=== PATIENT | female | born 1995 | race African-American/Black ===

== ENCOUNTER 2023-11-02 08:22 | Inpatient (IN) | payer MEDICAID, OTHER ==
[~2023-11-02] VITALS: Ht 161.3 cm; Wt 64.0 kg
[2023-11-02 09:06] LABS: Urine Bacteria None Seen /hpf (None Seen)
[2023-11-02 09:17] LABS: Urine Blood 3+ /uL (Negative); Urine Clarity Turbid (Clear); Urine Color Yellow (Yellow); Urine Mucus MANY (None Seen); Urine Protein, UAD 2+ (Negative); Urine Specific Gravity 1.033 (1.001-1.035); Urine Urobilinogen 2 mg/dL (Negative); Urine WBC 2 /hpf (0 - 5)
[2023-11-02 10:22] LABS: Basophils # (auto) 0 10 ^3/uL (0-0.2); Basophils % (auto) 0.5 % (0.0-2.0); Eosinophils # (auto) 0 10 ^3/uL (0-0.8); Hematocrit 37.3 % (36.0-46.0); Hemoglobin 12.5 g/dL (12.2-16.2); Lymphocytes # (auto) 0.4 10 ^3/uL (0.4-5.4); Lymphocytes % (auto) 17.2 % (10.0-50.0); Mean Corpuscular Hgb Conc. 33.5 g/dL (32.0-36.0); Mean Corpuscular Volume 89.5 fL (80.0-100.0); Monocytes # (auto) 0.3 10 ^3/uL (0-1.3); Monocytes % (auto) 13.8 % (0.0-12.0); Neutrophils # (auto) 1.7 10 ^3/uL (1.6-8.6); Neutrophils % (auto) 68.5 % (37.0-80.0); Nucleated Red Blood Cells % 0.3 %; Red Blood Cells 4.17 10^6/uL (4.0-5.20); Red Cell Distribution Width 15.8 % (11.8-14.3); White Blood Cell 2.4 10^3/uL (4.4-10.8)
[2023-11-02 10:28] LABS: Chloride 101 mmol/L (98-107); Potassium 3.3 mmol/L (3.5-5.1); Sodium 137 mmol/L (136-145)
[2023-11-02 10:29] LABS: Anion Gap 10 (5-15); Calcium 9.8 mg/dL (8.5-10.1); Carbon Dioxide 26 mmol/L (20-30)
[2023-11-02 10:34] LABS: BUN/Creatinine Ratio 15.4 (10.0-20.0); Blood Urea Nitrogen 12 mg/dL (9-23); Glucose 94 mg/dL (74-106)
[2023-11-02] MEDS: SODIUM CHLORIDE 0.9% 1,000 ML IV ONE ×2 (10:54)
[2023-11-02] MEDS: ONDANSETRON HCL 4 MG/2 ML VIAL IV ONE (10:54)
[2023-11-02] MEDS: POTASSIUM EFFERVESENT TAB 25 MEQ PO ONE (12:07)
[2023-11-02 12:10] VITALS: PULSE 72; RESP 18; O2SAT 98
[2023-11-02] MEDS: PROMETHAZINE HCL 6.25 MG/5 ML ORAL SYRUP PO ONE (12:22)
[2023-11-02] MEDS ORDERED: ACETAMINOPHEN 325 MG TAB PO PRN (13:00)
[2023-11-02] MEDS ORDERED: DOCUSATE SOD 100 MG CAP PO PRN (13:00)
[2023-11-02] MEDS ORDERED: METOCLOPRAMIDE HCL 5MG/ml INJ 2ml VIAL IV PRN (13:00)
[2023-11-02] MEDS: SODIUM CHLOR 0.9% PF (SALINE LOCK) 10ML VIAL/SYR IV SCH (14:00)
[2023-11-02 16:06] VITALS: BP 112/59; PULSE 75; RESP 18; RESP 75; TEMP 98.3; O2SAT 96
[2023-11-02 16:16] VITALS: BP 112/59; PULSE 75; RESP 18; TEMP 98.3; O2SAT 96
[2023-11-02 16:27] VITALS: BP 112/59; PULSE 75; RESP 18; TEMP 98; O2SAT 96
[2023-11-02 17:10] VITALS: BP 122/60; PULSE 72; RESP 16; TEMP 98.2; O2SAT 98
[2023-11-02 20:00] VITALS: BP 110/55; PULSE 70; RESP 16; RESP 20; TEMP 99; O2SAT 98
[2023-11-02] MEDS: guaiFENesin-DM 100/10mg/5ml SYR PO PRN (21:20)
[2023-11-02] MEDS: HYDROcodone-ACET 5/325MG TAB PO PRN (21:25)
[2023-11-02 23:12] LABS: Rapid Influenza A Negative (Negative); Rapid Influenza B Negative (Negative)
[2023-11-03] VITALS (7 sets, daily range): BP systolic 97–114; BP diastolic 41–64; PULSE 61–76; RESP 16–20; TEMP 97–98.4; O2SAT 95–99
[2023-11-03] MEDS: TEMAZEPAM 15 MG CAP PO ONE (01:31)
[2023-11-03 07:50] LABS: Amphetamine Screen, Urine Neg (NEGATIVE); Barbiturate Scree,Urine Neg (NEGATIVE); Benzodiazephine Screen, Urine Neg (NEGATIVE); Cannabinoid Screen, Urine Pos (NEGATIVE); Cocaine Screen, Urine Neg (NEGATIVE); Opiate Scree,Urine Pos (NEGATIVE); Phencyclidine Screen, Urine Neg (NEGATIVE)
[2023-11-03] MEDS: ENOXAPARIN SOD 40 MG/0.4 ML SYRINGE SC SCH (09:00)
[2023-11-03] MEDS: FAMOTIDINE (10MG/ML) 2ML VL IV SCH (09:00)
[2023-11-03] MEDS: ONDANSETRON HCL 4 MG/2 ML VIAL IV PRN (19:52)
[2023-11-03] MEDS: SUCRALFATE 1 GM/10 ML ORAL SUSP PO SCH (22:15)
[2023-11-03] MEDS: LOPERAMIDE HCL 2 MG CAP/TAB PO PRN (22:16)
[2023-11-04] VITALS (9 sets, daily range): BP systolic 98–123; BP diastolic 57–69; PULSE 64–97; RESP 14–18; TEMP 97.7–98.6; O2SAT 94–100
[2023-11-04] MEDS: HYDROmorphone HCL 2 MG/ML VL/or syr IV PRN (02:45)
[2023-11-04 05:58] LABS: Basophils # (auto) 0 10 ^3/uL (0-0.2); Basophils % (auto) 0.6 % (0.0-2.0); Eosinophils # (auto) 0 10 ^3/uL (0-0.8); Eosinophils % (auto) 0.2 % (0.0-7.0); Hematocrit 36.5 % (36.0-46.0); Hemoglobin 12.1 g/dL (12.2-16.2); Lymphocytes # (auto) 0.6 10 ^3/uL (0.4-5.4); Lymphocytes % (auto) 29.7 % (10.0-50.0); Mean Corpuscular Hemoglobin 29.5 pg (28.0-32.0); Mean Corpuscular Hgb Conc. 33.1 g/dL (32.0-36.0); Mean Corpuscular Volume 89.2 fL (80.0-100.0); Monocytes # (auto) 0.3 10 ^3/uL (0-1.3); Monocytes % (auto) 13.4 % (0.0-12.0); Neutrophils # (auto) 1.2 10 ^3/uL (1.6-8.6); Neutrophils % (auto) 56.1 % (37.0-80.0); Nucleated Red Blood Cells % 0.3 %; Red Blood Cells 4.09 10^6/uL (4.0-5.20); Red Cell Distribution Width 15.6 % (11.8-14.3); White Blood Cell 2.2 10^3/uL (4.4-10.8)
[2023-11-04 06:20] LABS: Alanine Aminotransferase 17 U/L (7-40); Albumin 4.1 g/dL (3.2-4.8); Alkaline Phosphatase 75 U/L (46-116); Anion Gap 8 (5-15); Aspartate Aminotransferase 34 U/L (13-40); BUN/Creatinine Ratio 12.9 (10.0-20.0); Blood Urea Nitrogen 9 mg/dL (9-23); Calcium 9.2 mg/dL (8.7-10.4); Carbon Dioxide 28 mmol/L (20-30); Chloride 104 mmol/L (98-107); Glucose 85 mg/dL (74-106); Lipase 26 U/L (12-53); Potassium 3.4 mmol/L (3.5-5.1); Sodium 140 mmol/L (136-145)
[2023-11-04 06:21] LABS: Bilirubin, Total 0.4 mg/dL (0.2-1.0); Total Protein 6.9 g/dL (5.7-8.2)
[2023-11-04] MEDS: cefTRIAXone 1GM/50ML D5W 50 ML IV SCH (08:03)
[2023-11-04] MEDS: ALBUTEROL SULF 2.5 MG/0.5ML(0.5%) NEB SOLN NEB ONE (15:15)
[2023-11-04] MEDS: IPRATROPIUM BROM 0.5 MG/2.5ML INH SOL NEB ONE (15:15)
[2023-11-04] MEDS: SOD CHL 0.9%/ KCL 40MEQ 1,000 ML IV ONE (16:02)
[2023-11-04] MEDS: PANTOPRAZOLE 40 MG TAB PO SCH (17:00)
[2023-11-04] MEDS: ALBUTEROL SULF 2.5 MG/0.5ML(0.5%) NEB SOLN NEB PRN (19:38)
[2023-11-04] MEDS: IPRATROPIUM BROM 0.5 MG/2.5ML INH SOL NEB PRN (19:38)
[2023-11-04] MEDS: PIPERACILLIN-TAZOB 3.375GM 100 ML IV SCH (21:55)
[2023-11-04] MEDS: TEMAZEPAM 15 MG CAP PO PRN (23:33)
[2023-11-05] VITALS (15 sets, daily range): BP systolic 99–110; BP diastolic 49–72; PULSE 69–90; RESP 16–20; TEMP 97.4–98.4; O2SAT 96–100
[2023-11-05 05:34] LABS: Hematocrit 33.4 % (36.0-46.0); Hemoglobin 11.2 g/dL (12.2-16.2); Mean Corpuscular Hemoglobin 29.7 pg (28.0-32.0); Mean Corpuscular Hgb Conc. 33.6 g/dL (32.0-36.0); Mean Corpuscular Volume 88.4 fL (80.0-100.0); Red Blood Cells 3.78 10^6/uL (4.0-5.20); Red Cell Distribution Width 15.6 % (11.8-14.3); White Blood Cell 2.4 10^3/uL (4.4-10.8)
[2023-11-05 05:47] LABS: Anion Gap 7 (5-15); Carbon Dioxide 27 mmol/L (20-30); Chloride 107 mmol/L (98-107); Potassium 2.9 mmol/L (3.5-5.1); Sodium 141 mmol/L (136-145)
[2023-11-05 05:48] LABS: Calcium 8.6 mg/dL (8.5-10.1)
[2023-11-05 05:53] LABS: BUN/Creatinine Ratio 8.5 (10.0-20.0); Band Neutrophils % (manual) 0; Basophils % (manual) 0 (0.0-2.0); Blast Cells 0; Blood Urea Nitrogen 6 mg/dL (9-23); Eosinophils % (manual) 0 (0-7); Glucose 86 mg/dL (74-106); Metamyelocytes % 0; Myelocytes % 0; Promyelocytes % 0; Reactive Lymphocytes 0
[2023-11-05 06:58] LABS: Anisocytosis Slight; Lymphocytes % (manual) 62 (10.0-50.0); Monocytes % (manual) 10 (0-12); Ovalocytes FEW; Platelet Estimate Decreased
[2023-11-05] MEDS: POTASSIUM EFFERVESENT TAB 25 MEQ PO ONE (12:22)
[2023-11-05] MEDS: IPRATROPIUM BROM 0.5 MG/2.5ML INH SOL NEB SCH (13:01)
[2023-11-05] MEDS: ALBUTEROL SULF 2.5 MG/0.5ML(0.5%) NEB SOLN NEB SCH (13:02)
[2023-11-06] VITALS (17 sets, daily range): BP systolic 103–109; BP diastolic 58–78; PULSE 60–108; RESP 14–20; TEMP 97.9–98.9; O2SAT 94–100
[2023-11-06 07:00] LABS: Chloride 107 mmol/L (98-107); Potassium 3.1 mmol/L (3.5-5.1); Sodium 141 mmol/L (136-145)
[2023-11-06 07:01] LABS: Anion Gap 6 (5-15); Carbon Dioxide 28 mmol/L (20-30)
[2023-11-06 07:02] LABS: COVID19 ANTIGEN SOFIA FIA NEGATIVE (NEGATIVE)
[2023-11-06 07:02] LABS: Calcium 8.9 mg/dL (8.5-10.1)
[2023-11-06 07:06] LABS: Glucose 83 mg/dL (74-106)
[2023-11-06 07:07] LABS: BUN/Creatinine Ratio 6.9 (10.0-20.0); Blood Urea Nitrogen < 5 mg/dL (9-23)
[2023-11-06] MEDS: SOD CHL 0.9%/ KCL 40MEQ 1,000 ML IV ONE (13:25)
[2023-11-06] MEDS: POTASSIUM EFFERVESENT TAB 25 MEQ PO ONE (13:25)
[2023-11-06] MEDS: MAGNESIUM SULFATE 1GM/100ML 100 ML IV ONE (13:45)
[2023-11-06] MEDS: methylPREDNISolone SOD SUCC 125 MG/2 ML VL IV ONE (15:47)
[2023-11-06] MEDS: ALBUTEROL SULF 2.5 MG/0.5ML(0.5%) NEB SOLN NEB SCH (16:10)
[2023-11-06] MEDS: ALBUTEROL SULF 2.5 MG/0.5ML(0.5%) NEB SOLN NEB PRN (18:45)
[2023-11-06] MEDS: IPRATROPIUM BROM 0.5 MG/2.5ML INH SOL NEB SCH ×2 (18:46→22:45)
[2023-11-06] MEDS: methylPREDNISolone SOD SUCC 40 MG/ML VL IV SCH (21:29)
[2023-11-06] MEDS: guaiFENesin-CODEINE Liq 5 ML UD PO PRN (23:40)
[2023-11-07] VITALS (19 sets, daily range): BP systolic 104–126; BP diastolic 51–70; PULSE 82–116; RESP 14–20; TEMP 97.7–98.2; O2SAT 90–100
[2023-11-07] MEDS: ALBUTEROL SULF 2.5 MG/0.5ML(0.5%) NEB SOLN NEB SCH (02:16)
[2023-11-07 07:13] LABS: Anion Gap 5 (5-15); Carbon Dioxide 25 mmol/L (20-30); Chloride 108 mmol/L (98-107); Potassium 4.3 mmol/L (3.5-5.1); Sodium 138 mmol/L (136-145)
[2023-11-07 07:15] LABS: Calcium 9.4 mg/dL (8.7-10.4)
[2023-11-07 07:19] LABS: Glucose 130 mg/dL (74-106)
[2023-11-07 07:20] LABS: Magnesium 2.1 mg/dL (1.6-2.6)
[2023-11-07 07:21] LABS: BUN/Creatinine Ratio 8.9 (10.0-20.0); Blood Urea Nitrogen < 5 mg/dL (9-23)
[2023-11-08] VITALS (21 sets, daily range): BP systolic 112–126; BP diastolic 58–81; PULSE 65–127; RESP 16–20; TEMP 97.6–98.5; O2SAT 93–100
[2023-11-08 06:54] LABS: Basophils # (auto) 0 10 ^3/uL (0-0.2); Eosinophils # (auto) 0 10 ^3/uL (0-0.8); Hematocrit 33.7 % (36.0-46.0); Hemoglobin 11.3 g/dL (12.2-16.2); Lymphocytes # (auto) 0.3 10 ^3/uL (0.4-5.4); Lymphocytes % (auto) 4.1 % (10.0-50.0); Mean Corpuscular Hemoglobin 30.1 pg (28.0-32.0); Mean Corpuscular Hgb Conc. 33.7 g/dL (32.0-36.0); Mean Corpuscular Volume 89.3 fL (80.0-100.0); Monocytes # (auto) 0.2 10 ^3/uL (0-1.3); Monocytes % (auto) 2.4 % (0.0-12.0); Neutrophils # (auto) 7.5 10 ^3/uL (1.6-8.6); Neutrophils % (auto) 93.5 % (37.0-80.0); Red Blood Cells 3.77 10^6/uL (4.0-5.20); Red Cell Distribution Width 16.4 % (11.8-14.3)
[2023-11-08 07:03] LABS: Alanine Aminotransferase 15 U/L (7-40); Alkaline Phosphatase 75 U/L (46-116); Anion Gap 4 (5-15); Aspartate Aminotransferase 15 U/L (13-40); BUN/Creatinine Ratio 8.8 (10.0-20.0); Bilirubin, Total 0.3 mg/dL (0.2-1.0); Blood Urea Nitrogen 6 mg/dL (9-23); Calcium 9.6 mg/dL (8.5-10.1); Carbon Dioxide 28 mmol/L (20-30); Chloride 107 mmol/L (98-107); Glucose 131 mg/dL (74-106); Potassium 4.5 mmol/L (3.5-5.1); Sodium 139 mmol/L (136-145); Total Protein 6.8 g/dL (5.7-8.2)
[2023-11-08] MEDS: AZITHROMYCIN 500MG/ 250ML 250 ML IV SCH (16:15)
[2023-11-08 17:08] LABS: Basophils # (auto) 0 10 ^3/uL (0-0.2); Basophils % (auto) 0.5 % (0.0-2.0); Eosinophils # (auto) 0 10 ^3/uL (0-0.8); Hematocrit 35.7 % (36.0-46.0); Hemoglobin 11.8 g/dL (12.2-16.2); Lymphocytes # (auto) 0.6 10 ^3/uL (0.4-5.4); Lymphocytes % (auto) 6.5 % (10.0-50.0); Mean Corpuscular Hemoglobin 29.6 pg (28.0-32.0); Mean Corpuscular Volume 89.7 fL (80.0-100.0); Monocytes # (auto) 0.4 10 ^3/uL (0-1.3); Monocytes % (auto) 4.1 % (0.0-12.0); Neutrophils # (auto) 8.2 10 ^3/uL (1.6-8.6); Neutrophils % (auto) 88.9 % (37.0-80.0); Nucleated Red Blood Cells % 0.1 %; Red Blood Cells 3.98 10^6/uL (4.0-5.20); White Blood Cell 9.2 10^3/uL (4.4-10.8)
[2023-11-08] MEDS: ACETYLCYSTEINE 10 %(100MG/ML) SOL 4ML NEB SCH (18:06)
[2023-11-09] VITALS (20 sets, daily range): BP systolic 101–127; BP diastolic 51–83; PULSE 78–110; RESP 16–20; TEMP 97.9–98.2; O2SAT 95–100
[2023-11-09 07:09] LABS: Anion Gap 5 (5-15); Carbon Dioxide 26 mmol/L (20-30); Chloride 105 mmol/L (98-107); Potassium 4.4 mmol/L (3.5-5.1); Sodium 136 mmol/L (136-145)
[2023-11-09 07:10] LABS: Calcium 9.7 mg/dL (8.7-10.4)
[2023-11-09 07:15] LABS: BUN/Creatinine Ratio 11.6 (10.0-20.0); Blood Urea Nitrogen 8 mg/dL (9-23)
[2023-11-09 07:43] LABS: Glucose 124 mg/dL (74-106)
[2023-11-10] VITALS (18 sets, daily range): BP systolic 103–120; BP diastolic 58–83; PULSE 60–106; RESP 16–20; TEMP 36.6; O2SAT 94–100
[2023-11-10] MEDS ORDERED: BUDE1AER15 IN (13:17)
[2023-11-10] MEDS ORDERED: METH4PAK PO (13:17)
[2023-11-10] MEDS ORDERED: AZITTAB PO (17:34)
== END 2023-11-10 18:00 | disposition home or self-care (01) | DRG 249 ==
LOC: ER 08:22 → OVERFLOW 12:59 → WEST WING 15:44
PROVIDERS: ADMIT Internal Medicine; ATTEND Nurse Practitioner Acute Care
DX: K52.9 Noninfective gastroenteritis and colitis, unspecified (principal); J69.0 Pneumonitis due to inhalation of food and vomit; D61.818 Other pancytopenia; E86.0 Dehydration; J21.9 Acute bronchiolitis, unspecified; J12.9 Viral pneumonia, unspecified; E87.6 Hypokalemia; F12.90 Cannabis use, unspecified, uncomplicated; Z20.822 Contact with and (suspected) exposure to COVID-19; J06.9 Acute upper respiratory infection, unspecified; F41.9 Anxiety disorder, unspecified; Z87.891 Personal history of nicotine dependence; Z83.3 Family history of diabetes mellitus
CPT/HCPCS: 36415; 70360; 71045; 71250; 74176; 76705; 80048; 80053; 80307; 81001; 81025; 83690; 83735; 85007; 85025; 85027; 86703; 87045; 87081; 87426; 87427; 87804; 94640; 96361; 96374; G0378; J2405; J2543; J3490